=== PATIENT | female | born 1970 | race Caucasian/White ===

== ENCOUNTER 2017-10-01 10:59 | Outpatient (CLI) | payer OTHER | END 2017-10-01 11:00 | disposition home or self-care (01) | LOC: BICMAMMO 10:59 → MERGE 11:00 | PROVIDERS: ATTEND Obstetrics & Gynecology | DX: Z12.31 Encounter for screening mammogram for malignant neoplasm of breast (principal) | CPT/HCPCS: 77063; 77067 ==

== ENCOUNTER 2018-08-04 10:18 | Outpatient (CLI) | payer OTHER ==
[2018-08-04 12:40] LABS: Hemoglobin 13.9 g/dL (12.0-16.0); Mean Corpuscular HGB CONC 33.6 g/dL (32.0-36.0); Mean Corpuscular Hemoglobin 31.3 pg (27.0-31.0); Mean Corpuscular Volume 93.3 fL (78.0-98.0); Mean Platelet Volume 9.4 fL (7.4-10.4); Platelet Count 276 thou/uL (130-400); RBC Distribution Width 11.3 % (11.5-14.5); Red Blood Cell (RBC) Count 4.44 mill/uL (4.20-5.40); White Blood Cell (WBC) Count 6.5 thou/uL (4.8-10.8)
[2018-08-04 13:13] LABS: BHCG - Serum Negative (NEGATIVE); Pregs Control Background? CLEAR/WHITE (CLR/WHITE); Pregs Control Bar Appear? YES (CONTROL BAR)
== END 2018-08-04 10:19 | disposition home or self-care (01) ==
LOC: LABBT 10:18
PROVIDERS: ATTEND Obstetrics & Gynecology
DX: Z01.812 Encounter for preprocedural laboratory examination (principal); N94.6 Dysmenorrhea, unspecified; R10.2 Pelvic and perineal pain
CPT/HCPCS: 84703; 85027

== ENCOUNTER 2018-08-10 11:38 | Day surgery (SDC) | payer OTHER ==
[2018-08-04 11:02] VITALS: BMI 27.1
--- NOTE | 2018-08-06 10:08 | HP ---
She is scheduled for hysterectomy on August 10. HISTORY OF PRESENT ILLNESS: Ms. Heller is a 48-year-old white female, G0, who has been having very painful and heavy menstrual cycles that have worsened over the past year. She has been using nonsteroidal agents for this along with a trial of gabapentin for the pain with no relief. She declined usage of oral contraceptives due to them making her feel emotionally unstable. She also reports a premenstrual cramping like sensation all month that is very severe when she has the onset of her cycles. PAST MEDICAL HISTORY: Otherwise negative. PAST SURGICAL HISTORY: She has had a previous LASIK eye surgery. FAMILY HISTORY: Negative for breast and ovarian cancer. CURRENT MEDICATIONS: She does take some Elavil 25 mg at night p.r.n. for sleep, but otherwise, no chronic medications reported. She had a negative Pap and HPV screening in October 2015, and no prior dysplasia history. PHYSICAL EXAMINATION: VITAL SIGNS: Height 5 feet 6 inches, weight 162 pounds with a BMI of 26.1. Blood pressure is 132/78, pulse 80, and O2 saturations on room air is 99%. HEENT: Within normal limits. CHEST: Clear to auscultation. HEART: Regular rate and rhythm. S1 and S2 heart sounds. No murmurs, rubs, or gallops. ABDOMEN: Soft, nontender, and nondistended with no palpable masses. PELVIC: Vulva and vagina had no lesions. Cervix had no lesions. The uterus was mildly enlarged and tender. There were no adnexal masses, but there was some parametrial tenderness and posterior cul-de-sac tenderness noted on exam. ASSESSMENT: This is a 48-year-old white female with secondary dysmenorrhea and also chronic pelvic pain symptoms. Suspect possible endometriosis versus adenomyosis of the uterus. PLAN: Plan is to proceed with robotic total laparoscopic hysterectomy and bilateral salpingo-oophorectomy. The patient desires removal of her ovaries. The risks and benefits of procedure discussed in detail. She is set for surgery on August 10. Job ID: [id number]
[2018-08-10] MEDS ORDERED: CeleCOXIB 100 MG CAP ONE (12:10)
[2018-08-10] MEDS ORDERED: Famotidine/PF 20 mg/2ml Vial ONE (12:10)
[2018-08-10] MEDS ORDERED: Gabapentin 300 MG CAP ONE (12:10)
[2018-08-10] MEDS ORDERED: Midazolam HCl 2 mg/2 ml Vial ONE ×2 (12:18→12:36)
[2018-08-10] MEDS ORDERED: Fentanyl 250 MCG/5 ML VIAL ONE (12:18)
[2018-08-10] MEDS ORDERED: Bupivacaine HCl 0.5%/Epinephrine 1:200,000/PF 30 ml Vial ONE (12:22)
[2018-08-10] MEDS ORDERED: Zolpidem Tartrate 5 MG TAB PO PRN (14:40)
[2018-08-10] MEDS ORDERED: Bisacodyl 10 MG SUPP PR PRN (14:40)
[2018-08-10] MEDS ORDERED: diphenhydrAMINE 25 MG CAP PO PRN (14:40)
[2018-08-10] MEDS ORDERED: Ondansetron PF 4 MG/2 ML Vial IVP PRN (14:40)
[2018-08-10] MEDS ORDERED: Simethicone Chewable 80 MG TAB PO PRN (14:40)
[2018-08-10] MEDS ORDERED: Promethazine HCl 25 MG/ML VIAL IM PRN (14:40)
[2018-08-10] MEDS ORDERED: Morphine 4 MG/ML VIAL SLOW IVP PRN (14:40)
[2018-08-10] MEDS ORDERED: traMADol HCl 50 MG TAB PO PRN ×2 (14:40)
[2018-08-10] MEDS ORDERED: Amitriptyline HCl 10 MG TAB PO PRN (14:44)
[2018-08-10] MEDS ORDERED: Fentanyl 100 MCG/2 ML VIAL ONE ×2 (15:06→15:19)
[2018-08-10] MEDS ORDERED: Lidocaine 1% PF 5 ML VIAL ONE (15:37)
[2018-08-10] MEDS ORDERED: Dexamethasone 20 MG/5 ML VIAL ONE (15:37)
[2018-08-10] MEDS ORDERED: PROPOFOL 200 MG/20 ML VIAL ONE (15:37)
[2018-08-10] MEDS ORDERED: Ondansetron PF 4 MG/2 ML Vial ONE (15:37)
[2018-08-10] MEDS ORDERED: Rocuronium Bromide 10 MG/ML (10ML VIAL) ONE (15:37)
[2018-08-10] MEDS ORDERED: Glycopyrrolate 0.2 MG/ML 5 ML SYRINGE ONE (15:37)
[2018-08-10] MEDS ORDERED: Morphine 4 MG/ML VIAL ONE (15:40)
[2018-08-10] MEDS ORDERED: Morphine 2 MG/ML SYRINGE ONE ×2 (15:52→16:07)
[2018-08-10] MEDS: Sodium Chloride 0.9% 1,000 ML IV SCH (17:16)
[2018-08-10] MEDS: Ketorolac Tromethamine 30 MG/ML VIAL IVP SCH ×2 (18:41→23:44)
[2018-08-10] MEDS: Acetaminophen 1,000 MG in Premix Bag 1 BAG IVPB SCH ×2 (18:44→23:49)
[2018-08-11] MEDS: Sodium Chloride 0.9% 1,000 ML IV SCH ×3 (00:47→15:47)
[2018-08-11] MEDS: Ketorolac Tromethamine 30 MG/ML VIAL IVP SCH ×2 (06:08→12:41)
[2018-08-11 08:16] VITALS: TEMP 98.3
[2018-08-11 08:57] LABS: Hemoglobin 11.4 g/dL (12.0-16.0); Mean Corpuscular HGB CONC 33.7 g/dL (32.0-36.0); Mean Corpuscular Hemoglobin 31.5 pg (27.0-31.0); Mean Corpuscular Volume 93.4 fL (78.0-98.0); Mean Platelet Volume 8.8 fL (7.4-10.4); Platelet Count 246 thou/uL (130-400); RBC Distribution Width 11.3 % (11.5-14.5); Red Blood Cell (RBC) Count 3.62 mill/uL (4.20-5.40)
[2018-08-11 12:14] VITALS: BP 123/66
--- NOTE | 2018-08-12 12:00 | OP ---
DATE OF PROCEDURE: 08/10/2018 PREOPERATIVE DIAGNOSES: 1. A 48-year-old white female, G0 with severe dysmenorrhea, menorrhagia, unresponsive to medical management. 2. Suspect endometriosis/adenomyosis. POSTOPERATIVE DIAGNOSES: 1. A 48-year-old white female, G0 with severe dysmenorrhea, menorrhagia, unresponsive to medical management. 2. Suspect endometriosis/adenomyosis. PROCEDURES PERFORMED: Robotic total laparoscopic hysterectomy with bilateral salpingectomy and right oophorectomy. FORM DESIGNER SURGEON: Rachell Garcia PA-C ESTIMATED BLOOD LOSS: 50 mL. COMPLICATIONS: None. COUNTS: Correct x2. ANTIBIOTICS: 2 g Ancef, on-call to OR. FINDINGS: 1. Normal-appearing left ovary and bilateral fallopian tubes. 2. Right ovary with evidence of powder-burn lesions of endometriosis on the surface. 3. Uterus was mottled in appearance consistent with adenomyosis and also scattered powder-burn lesions noted in the posterior cul-de-sac, bilateral uterosacral ligaments, and pelvic sidewalls. All consistent with endometriosis. 4. Bladder was watertight to over 300 mL fluid distention postprocedure and clear urine was present. 5. Bilateral ureteral peristalsis visualized postprocedure. DISPOSITION: To recovery room, stable. DESCRIPTION OF PROCEDURE: The patient previously received informed consent in regard to surgery. She was taken back to the operating room, where she received a general endotracheal anesthetic agent without complications. She was placed in dorsal lithotomy position with the use of Nadeem stirrups. A Salinas catheter was placed at this time. A side-arm speculum was placed in the vagina. Anterior lip of cervix grasped with single-tooth tenaculum. The uterus sounded to 8 cm. A size 8 cm ALETHEA uterine manipulator with a 3.5 cm cervical cup was then placed. Tenaculum and speculum were then removed. Attention was then turned to the abdomen, where perspective trocar sites were infiltrated with 0.5% Marcaine with epinephrine. A 12 mm supraumbilical incision was made and a Veress needle was entered into the peritoneal cavity. The patient's pressure was less than 5 mm. Abdomen was insufflated with the patient's pressure of 15 approximately 4.5 L of carbon dioxide gas. A size 12 mm trocar was then placed through the supraumbilical incision and then the robotic laparoscope was introduced through the trocar sleeve. Proper entry was confirmed. The patient has then had two 8 mm low right and left lower quadrant trocars placed under laparoscopic guidance along with an 11 mm right upper quadrant biology laboratory assistant port. The patient was placed in Trendelenburg position and robot was docked in usual fashion. I proceeded to break scrub and then operate at the operative console while my biology laboratory assistant has remained at the bedside. The uterus was elevated, previously mentioned findings were noted. The left fallopian tube was then grasped by my biology laboratory assistant and I proceeded to coagulate the mesosalpinx and incised this, removing the left fallopian tube. This was removed in the right upper quadrant port by my biology laboratory assistant. The left uterine ovarian ligament was then identified. It was coagulated and transected with a serial coagulation transection down to the left round ligament. The anterior leaf of the broad ligament was entered. The vesicouterine peritoneum was incised with monopolar scissors, both sharply and bluntly and layering technique dissecting the bladder safely past the cervical vaginal angle, which was noted by the indention of the cervical cup of the manipulator. The left uterine vessels were skeletonized and the medial leaf of the broad ligament was dissected laterally away from the uterine specimen, mobilizing the ureter free from this area. The left uterine vessels were then coagulated in the internal cervical os region with bipolar fenestrated cautery. The right tube and ovary again were inspected. There was powder-burn lesions on the right ovary noted. Therefore, the decision was made to remove the right ovary due to the endometriotic implants. The right IP ligament was identified. The course of the right ureter was noted to be below this, away from the operative field. The bipolar fenestrated cautery was utilized to coagulate the right infundibulopelvic ligament. It was transected with monopolar scissors. Serial coagulation and transection of the broad ligament hugging close to uterus was carried out to the right round ligament until reached. It was coagulated and transected. The anterior leaf of the broad ligament again was entered. The vesicouterine peritoneum was again incised and dissected in layering technique dropping the bladder safely past the cervical vaginal margin. The right uterine vessels again were skeletonized pushing the medial leaf of the broad ligament to the pelvic away from the uterine specimen towards the right pelvic sidewall. The uterine vessels were then coagulated in the internal cervical os region. Once we had security of the uterine vessels, the bladder was distended to confirm that this had been adequately dissected passed the anticipated anterior colpotomy entry site. The bladder was intact with fluid distention well away from the anticipating anterior colpotomy cut site. The bladder was deflated and the monopolar scissors were utilized to cut the anterior colpotomy from 12 to 3 and 12 to 9 o'clock position and then, the vessels were resecured with bipolar fenestrated cautery of completing the posterior colpotomy from 6 to 9 and 6 to 3. The specimen was then delivered into the vaginal vault. The monopolar scissor was switched by my biology laboratory assistant with a Dejuan needle regional [employer] company driver. The vaginal cuff was coagulated in any areas of oozing with bipolar fenestrated cautery. The pelvic sidewalls were inspected and noted to be hemostatic. My biology laboratory assistant brought in a STRATAFIX suture and then the vaginal cuff was closed in full-thickness closure starting from the right angle of the vaginal cuff back to the left angle back towards the midline. The excess suture needle was then cut and then removed by my biology laboratory assistant through the biology laboratory assistant port. The pelvis again was inspected. Hemostasis confirmed. The Salinas catheter was draining clear urine. Bilateral ureteral peristalsis was visualized. The robot was then undocked and the trocar sleeves were removed. A deep stitch of 0 Vicryl in [id number] stitch fashion was used to close the fascial defect at the supraumbilical region. The remainder of the trocar sites were closed with 4-0 Monocryl with Dermabond. Hemostasis was confirmed. A sponge stick in the vaginal check was also carried out. Hemostasis vaginally was confirmed. The patient was awakened from anesthesia and transferred to recovery room in stable condition. Job ID: [id number]
--- NOTE | 2018-08-13 15:15 | DIS ---
DATE OF ADMISSION: 08/10/2018 DATE OF DISCHARGE: 08/11/2018 DIAGNOSES: 1. Severe dysmenorrhea. 2. Menorrhagia. 3. Pelvic endometriosis. PROCEDURES PERFORMED: Robotic total laparoscopic hysterectomy with right salpingo-oophorectomy. SUMMARY OF HOSPITAL COURSE: Ms. Heller is a 48-year-old white female, who has had persistent severe dysmenorrhea and menorrhagia despite medical management trials. She desired definitive surgical therapy. She underwent a robotic total laparoscopic hysterectomy with right salpingo-oophorectomy on 08/10/2018. At the time of surgery, she was noted to have powder-burn lesions in the pelvis and on the right ovary consistent with endometriosis. The left ovary was normal. Postoperatively, the patient has done well. Vital signs remained stable and she was ambulating and voiding and tolerating a regular diet on postop day #1. Her postoperative hematocrit was appropriate at 33.8%. She was discharged home the afternoon of postop day #1 and has a followup in 2 and 6 weeks. Pathology pending at time of this discharge. Her prescriptions will be tramadol 50 mg q.6 hours [id number] p.r.n. pain and ibuprofen [id number] as directed. Job ID: [id number]
[2018-08-15] MEDS ORDERED: Ibuprofen 800 MG TAB PO SCH (21:00)
== END 2018-08-11 15:50 | disposition home or self-care (01) ==
LOC: SDC 11:38 → 3SE 14:40 → EDSTATUS 16:15 → SDC 08-11 15:50
PROVIDERS: ATTEND Obstetrics & Gynecology
PROC: 0UT94ZZ Resection of Uterus, Percutaneous Endoscopic Approach (ICD-10-PCS; principal; 2018-08-11)
PROC: 0UT74ZZ Resection of Bilateral Fallopian Tubes, Percutaneous Endoscopic Approach (ICD-10-PCS; principal; 2018-08-11)
PROC: 0UT24ZZ Resection of Bilateral Ovaries, Percutaneous Endoscopic Approach (ICD-10-PCS; principal; 2018-08-11)
DX: D25.9 Leiomyoma of uterus, unspecified (principal); N94.6 Dysmenorrhea, unspecified; N92.0 Excessive and frequent menstruation with regular cycle
CPT/HCPCS: 36415; 85027; 86850; 86900; 86901; 88307; J0131; J0670; J0690; J1100; J1885; J2001; J2250; J2270; J2405; J2704; J3010; S0028

== ENCOUNTER 2018-10-06 08:10 | Outpatient (CLI) | payer OTHER ==
--- NOTE | 2018-10-06 10:58 | MMO ---
Bilateral MAMMO Bilat Screen [facility]. CLINICAL HISTORY: Patient is 48 years old and is seen for screening. The patient has no family history of breast cancer. The patient has no personal history of cancer. VIEWS: The views performed were: bilateral craniocaudal with tomosynthesis and bilateral mediolateral oblique with tomosynthesis. FILMS COMPARED: The present examination has been compared to prior imaging studies performed at [facility] on 09/21/2014, 09/26/2015, 09/26/2016 and 10/01/2017. MAMMOGRAM FINDINGS: The breasts are heterogeneously dense, which could obscure a lesion on mammography. There is a focal asymmetry seen in the upper-outer region of the left breast. In the right breast, there are no suspicious masses, calcifications or areas of architectural distortion. IMPRESSION: FOCAL ASYMMETRY IN THE LEFT BREAST REQUIRES ADDITIONAL EVALUATION. SPOT COMPRESSION IS RECOMMENDED. AN ULTRASOUND EXAM IS RECOMMENDED. ADDITIONAL IMAGING. THE RESULTS OF THIS EXAM WERE SENT TO THE PATIENT. ACR BI-RADS Category 0 - Incomplete: Need additional imaging evaluation. [facility] will notify the patient of the need for additional imaging services. MAMMOGRAPHY NOTE: 1. A negative mammogram report should not delay a biopsy if a dominant of clinically suspicious mass is present. 2. Approximately 10% to 15% of breast cancers are not detected by mammography. 3. Adenosis and dense breasts may obscure an underlying neoplasm. Reported by: KEITH AYERS MD Electonically Signed: [id number]
== END 2018-10-06 08:11 | disposition home or self-care (01) ==
LOC: BICMAMMO 08:10
PROVIDERS: ATTEND Obstetrics & Gynecology
DX: Z12.31 Encounter for screening mammogram for malignant neoplasm of breast (principal); N64.89 Other specified disorders of breast
CPT/HCPCS: 77063; 77067

== ENCOUNTER 2018-10-08 13:22 | Outpatient (CLI) | payer OTHER ==
--- NOTE | 2018-10-08 13:58 | MMO ---
Left Breast MAMMO Unilat Diag DDI LT+GEOVANNY. CLINICAL HISTORY: Patient is 48 years old and is seen for diagnostic exam. The patient has no family history of breast cancer. The patient has no personal history of cancer. VIEWS: The views performed were: left mediolateral oblique spot compression with tomosynthesis and left mediolateral with tomosynthesis. FILMS COMPARED: The present examination has been compared to prior imaging studies performed at [facility] on 09/26/2015, 09/26/2016, 10/01/2017 and 10/06/2018. MAMMOGRAM FINDINGS: The breast is heterogeneously dense, which could obscure a lesion on mammography. Left focal asymmetry presses out indicative of benign superimposition of breast tissue. There are no suspicious masses, suspicious calcifications, or new areas of architectural distortion. IMPRESSION: THERE IS NO MAMMOGRAPHIC EVIDENCE OF MALIGNANCY. A ROUTINE FOLLOW-UP MAMMOGRAM IN 1 YEAR IS RECOMMENDED. THE RESULTS OF THIS EXAM WERE SENT TO THE PATIENT. ACR BI-RADS Category 2 - Benign finding MAMMOGRAPHY NOTE: 1. A negative mammogram report should not delay a biopsy if a dominant of clinically suspicious mass is present. 2. Approximately 10% to 15% of breast cancers are not detected by mammography. 3. Adenosis and dense breasts may obscure an underlying neoplasm. Reported by: Souleymane MORENO Electonically Signed: [id number]
== END 2018-10-08 13:23 | disposition home or self-care (01) ==
LOC: BICMAMMO 13:22
PROVIDERS: ATTEND Obstetrics & Gynecology
DX: R92.2 Inconclusive mammogram (principal)
CPT/HCPCS: G0279

== ENCOUNTER 2022-10-28 14:31 | Outpatient (CLI) | payer BC | END 2022-10-28 14:32 | disposition home or self-care (01) | LOC: RAD 14:31 | PROVIDERS: ATTEND Physician Assistant Medical | DX: R05.9 Cough, unspecified (principal); K21.9 Gastro-esophageal reflux disease without esophagitis | CPT/HCPCS: 71046 ==